=== PATIENT | female | born 1990 | race African-American/Black ===

== ENCOUNTER 2018-06-06 02:05 | Emergency (ER) | payer MEDICAID ==
[~2018-06-06] VITALS: Ht 175.3 cm; Wt 97.5 kg
[2018-06-06] MEDS ORDERED: IPRATROPIUM BROM 0.5 MG/2.5ML INH SOL NEB ONE (06:45)
[2018-06-06] MEDS ORDERED: methylPREDNISolone SOD SUCC 125 MG/2 ML VL IM ONE (06:45)
[2018-06-06] MEDS ORDERED: ALBUTEROL SULF 2.5 MG/0.5ML(0.5%) NEB SOLN NEB ONE (06:45)
[2018-06-06 07:17] VITALS: BP 127/73
== END 2018-06-06 08:46 | disposition home or self-care (01) ==
LOC: EDBD 02:05 → EDUNIT# 02:05 → ER 02:05
DX: J45.909 Unspecified asthma, uncomplicated (principal); F20.9 Schizophrenia, unspecified; F31.9 Bipolar disorder, unspecified; F41.9 Anxiety disorder, unspecified
CPT/HCPCS: 71045; 94640; 96372; 99283; J2930

== ENCOUNTER 2018-07-14 12:13 | Emergency (ER) | payer MEDICAID ==
[~2018-07-14] VITALS: Ht 175.3 cm; Wt 90.7 kg
[2018-07-14 13:47] LABS: Basophils # (auto) 0.1 uL; Eosinophils # (auto) 0.1 uL; Eosinophils % (auto) 0.9 % (0.0-7.0); Monocytes # (auto) 0.9 uL
[2018-07-14 13:48] LABS: Basophils % (auto) 0.7 % (0.0-2.0); Hematocrit 37.5 % (36.0-46.0); Hemoglobin 11.8 g/dL (12.2-16.2); Lymphocytes # (auto) 3.2 uL; Lymphocytes % (auto) 26.5 % (10.0-50.0); Mean Corpuscular Hemoglobin 21.4 pg (28.0-32.0); Mean Corpuscular Hgb Conc. 31.4 g/dL (32.0-36.0); Mean Corpuscular Volume 68.2 fL (80.0-100.0); Monocytes % (auto) 7.1 % (0.0-12.0); Neutrophils # (auto) 7.8 uL; Neutrophils % (auto) 64.8 % (37.0-80.0); Nucleated Red Blood Cells % 0.1 %; Platelet Count (auto) 318 10^3/uL (140-450); Red Cell Distribution Width 17.1 % (11.8-14.3); White Blood Cell 12.1 10^3/uL (4.4-10.8)
[2018-07-14 14:14] LABS: Albumin 3.7 g/dL (3.4-5.0); BUN/Creatinine Ratio 13.9; Bilirubin, Total 0.7 mg/dL (0.2-1.0); Calcium 8.8 mg/dL (8.5-10.1); Potassium 3.4 mmol/L (3.5-5.1); Total Protein 8.1 g/dL (6.4-8.2)
[2018-07-14] MEDS ORDERED: OLANZapine 5 MG TAB PO ONE (17:00)
[2018-07-14] MEDS ORDERED: POTASSIUM EFFERVESENT TAB 25 MEQ PO ONE (17:00)
[2018-07-15] MEDS ORDERED: SODIUM CHLORIDE 0.9% 1,000 ML IV ONE (03:15)
[2018-07-15 05:54] LABS: Urine Pregnacy Test Negative (Negative)
[2018-07-15 05:55] LABS: Urine Bacteria NONE SEEN /hpf (None Seen); Urine Blood Negative /uL (Negative); Urine Mucus FEW (None Seen); Urine Specific Gravity 1.025 (1.001-1.035); Urine WBC 6 /hpf (0 - 5)
[2018-07-15 06:39] LABS: Amphetamine Screen, Urine NEGATIVE (NEGATIVE); Barbiturate Scree,Urine NEGATIVE (NEGATIVE); Benzodiazephine Screen, Urine NEGATIVE (NEGATIVE); Cannabinoid Screen, Urine POSITIVE (NEGATIVE); Cocaine Screen, Urine NEGATIVE (NEGATIVE); Opiate Scree,Urine NEGATIVE (NEGATIVE); Phencyclidine Screen, Urine NEGATIVE (NEGATIVE)
[2018-07-15] MEDS ORDERED: OLANZapine 5 MG TAB PO ONE (22:00)
[2018-07-16 08:38] LABS: Basophils # (auto) 0.1 uL; Eosinophils # (auto) 0.2 uL; Hemoglobin 11.9 g/dL (12.2-16.2); Lymphocytes # (auto) 3.7 uL; Monocytes # (auto) 0.9 uL; White Blood Cell 12.6 10^3/uL (4.4-10.8)
[2018-07-16 08:40] LABS: Basophils % (auto) 0.4 % (0.0-2.0); Eosinophils % (auto) 1.2 % (0.0-7.0); Hematocrit 37.5 % (36.0-46.0); Lymphocytes % (auto) 29.2 % (10.0-50.0); Mean Corpuscular Hemoglobin 21.9 pg (28.0-32.0); Mean Corpuscular Hgb Conc. 31.7 g/dL (32.0-36.0); Monocytes % (auto) 6.9 % (0.0-12.0); Neutrophils # (auto) 7.9 uL; Neutrophils % (auto) 62.3 % (37.0-80.0); Nucleated Red Blood Cells % 0.3 %; Platelet Count (auto) 310 10^3/uL (140-450); Red Blood Cells 5.44 10^6/uL (4.0-5.20); Red Cell Distribution Width 16.9 % (11.8-14.3)
[2018-07-16 09:01] LABS: Albumin 3.8 g/dL (3.4-5.0); BUN/Creatinine Ratio 11.3; Bilirubin, Total 0.9 mg/dL (0.2-1.0); Potassium 3.2 mmol/L (3.5-5.1); Total Protein 8.1 g/dL (6.4-8.2)
[2018-07-16] MEDS ORDERED: LORazepam 2MG/ML-1ML VIAL ONE (09:36)
[2018-07-16] MEDS ORDERED: HALOPERIDOL LACTATE 5 MG/ML INJ VIAL ONE (09:37)
[2018-07-16] MEDS ORDERED: HALOPERIDOL LACTATE 5 MG/ML INJ VIAL IM ONE (09:45)
[2018-07-16] MEDS ORDERED: diphenhdrAMINE HCL 50 MG/1 ML VL IM ONE (09:45)
[2018-07-16] MEDS ORDERED: LORazepam 2MG/ML-1ML VIAL IM ONE (09:45)
[2018-07-16] MEDS: OLANZapine 5 MG TAB PO SCH ×2 (09:50→10:59)
[2018-07-16] MEDS ORDERED: cefTRIAXone SOD 1,000 MG VL ONE (10:20)
[2018-07-16] MEDS ORDERED: cefTRIAXone SOD 1,000 MG VL IM ONE (10:30)
[2018-07-16 14:12] VITALS: BP 116/67
== END 2018-07-18 07:45 | disposition short-term general hospital (02) ==
LOC: EDUNIT# 12:13 → EDBD 12:13 → ER 12:15
DX: F20.9 Schizophrenia, unspecified (principal); F32.9 Major depressive disorder, single episode, unspecified; F31.32 Bipolar disorder, current episode depressed, moderate; F41.9 Anxiety disorder, unspecified; J45.909 Unspecified asthma, uncomplicated
CPT/HCPCS: 36415; 71045; 80053; 80307; 81001; 81025; 85025; 94761; 96372; 99285; J0696; J1630; J2060; J7030